=== PATIENT | male | born 1935 | race Caucasian/White ===

== ENCOUNTER 2017-10-08 14:52 | Inpatient (IN) | payer MEDICARE, OTHER ==
[2017-10-08] MEDS ORDERED: METOCLOPRAMIDE 10 MG INJ IV (16:00)
[2017-10-08] MEDS ORDERED: BISACODYL 10 MG SUPP PR (16:00)
[2017-10-08] MEDS ORDERED: GLUCOSE GEL 15 GRAM TUBE BUCCAL (16:30)
[2017-10-08] MEDS ORDERED: GLUCOSE GEL 15 GRAM TUBE PO ×2 (16:30)
[2017-10-08] MEDS ORDERED: GLUCAGON 1 MG INJ IM (16:30)
[2017-10-08] MEDS ORDERED: DEXTROSE 50% 50 ML SYRINGE IV ×2 (16:30)
[2017-10-08] MEDS: metFORMIN 500 MG TAB PO (16:53)
[2017-10-08] MEDS: MIDODRINE 2.5 MG TAB GTB (17:00)
[2017-10-08] MEDS: INSULIN ASPART [NOVOLOG] 3 ML PEN SC ×2 (17:06→20:56)
[2017-10-08] MEDS: FUROSEMIDE 20 MG INJ IV (17:09)
[2017-10-08] MEDS: METHYLPREDNISOLONE 40 MG INJ IV (20:52)
[2017-10-08] MEDS: ATORVASTATIN 20 MG TAB PO (20:57)
[2017-10-08] MEDS: METOPROLOL 25 MG TAB PO (20:57)
[2017-10-08] MEDS: APIXABAN 5 MG TABLET PO (20:57)
[2017-10-08] MEDS: MIRTAZAPINE 15 MG TAB PO (20:58)
[2017-10-08] MEDS ORDERED: FAMOTIDINE 20 MG TAB PO (21:00)
[2017-10-08] MEDS: ALBUTEROL 0.083% (NEB) 2.5 MG/3 ML AMP HHN (23:27)
[2017-10-09] MEDS: FUROSEMIDE 20 MG INJ IV ×2 (00:03→06:15)
[2017-10-09] MEDS: ACCU-CHEK XX (02:28)
[2017-10-09] MEDS: ALBUTEROL 0.083% (NEB) 2.5 MG/3 ML AMP HHN ×4 (02:48→19:14)
[2017-10-09 05:23] LABS: ABNORMAL IP MESSAGE 1; HEMATOCRIT 31.1 % (42.0-52.0); HEMOGLOBIN 10.1 g/dl (14.0-18.0); MEAN CORPUSCULAR HEMOGLOBIN 28.6 pg (29.0-33.0); MEAN CORPUSCULAR HGB CONC 32.5 g/dl (32.0-37.0); MEAN CORPUSCULAR VOLUME 88.1 fl (82.0-101.0); MEAN PLATELET VOLUME 10.1 fl (7.4-10.4); PLATELET COUNT 251 10^3/UL (140-415); POSITIVE DIFF @See below; RED BLOOD COUNT 3.53 10^6/ul (4.70-6.10); RED CELL DISTRIBUTION WIDTH 18.8 % (11.5-14.5)
[2017-10-09 05:23] LABS: WHITE BLOOD COUNT 13.6 10^3/ul (4.8-10.8)
[2017-10-09 05:37] LABS: ADD MAN DIFF? YES
[2017-10-09 05:43] LABS: ANION GAP 13 (8-16); BLOOD UREA NITROGEN 43 mg/dl (7-20); CALCIUM 9.4 mg/dl (8.4-10.2); CARBON DIOXIDE 31 mmol/L (21-31); CHLORIDE 101 mmol/L (97-110); CREATININE 0.68 mg/dl (0.61-1.24); GLUCOSE 108 mg/dl (70-220); POTASSIUM 4.2 mmol/L (3.5-5.1); SODIUM 141 mmol/L (135-144)
[2017-10-09 05:57] LABS: MAGNESIUM 1.9 mg/dl (1.7-2.5)
[2017-10-09] MEDS: LEVOTHYROXINE 100 MCG TAB PO (06:00)
[2017-10-09] MEDS: PANTOPRAZOLE 40 MG INJ IV ×2 (06:15→17:48)
[2017-10-09] MEDS: metFORMIN 500 MG TAB PO ×2 (07:35→17:49)
[2017-10-09 08:47] LABS: AADO2 Arterial 165.6 mmHg (7.0-24.0); Allen Test ACCEPTAB; Arterial Base Excess 7.6 mmol/L (-3.0-3); Arterial COHb 0.9 % (0.0-3.0); Arterial Fraction of Oxyhgb 93.1 % (93.0-99.0); Arterial HCO3 31.8 mmol/L (22.0-26.0); Arterial MetHb 0.1 % (0.0-1.5); Arterial Total Hemglobin 12.1 g/dl (12.0-18.0); Arterial pCO2 43.3 mmhg (35-45); MODE MASK - VENTI; Site Right Radial
[2017-10-09] MEDS: INSULIN ASPART [NOVOLOG] 3 ML PEN SC ×4 (08:59→21:00)
[2017-10-09] MEDS ORDERED: CLOPIDOGREL 75 MG TAB PO (09:00)
[2017-10-09] MEDS: APIXABAN 5 MG TABLET PO ×2 (09:15→21:08)
[2017-10-09] MEDS: CLOPIDOGREL 75 MG TAB PO (09:15)
[2017-10-09] MEDS: BALSAM PERU/CASTOR OIL 60 GM TUBE TOP (09:15)
[2017-10-09] MEDS: METHYLPREDNISOLONE 40 MG INJ IV ×2 (09:15→21:08)
[2017-10-09] MEDS: CHOLECALCIFEROL 2,000 UNIT CAP PO (09:16)
[2017-10-09] MEDS: DUTASTERIDE 0.5 MG CAP PO (09:16)
[2017-10-09] MEDS: METOPROLOL 25 MG TAB PO ×2 (09:16→21:00)
[2017-10-09] MEDS: MIDODRINE 2.5 MG TAB GTB ×3 (09:16→17:49)
[2017-10-09 10:15] LABS: ANISOCYTOSIS 2+ (0-0); BAND NEUTROPHILS #M 0.5 10^3/ul (0.0-0.6); BAND NEUTROPHILS % (M) 4 % (0-4); BURR CELLS 1+ (0-0); LYMPHOCYTES #M 0.1 10^3/ul (0.8-2.9); LYMPHOCYTES % (M) 1 % (15-51); METAMYELOCYTES #M 0.1 10^3/ul (0.0-0.0); METAMYELOCYTES %M 1 % (0-0); MONOCYTE #M 0.2 10^3/ul (0.3-0.9); MONOCYTES % (M) 2 % (0-11); MYELOCYTES #M 0.5 10^3/ul (0.0-0.0); MYELOCYTES % (M) 4 % (0-0); PLATELET ESTIMATE NORMAL; POIKILOCYTOSIS 1+ (0-0); POLYCHROMASIA 1+ (0-0); PROMYELOCYTES #M 0.1 10^3/ul (0-0); PROMYELOCYTES % (M) 1 % (0-0); SEG NEUT #M 11.9 10^3/ul (1.6-7.5); SEGMENTED NEUTROPHILS (M) % 87 % (39-77)
[2017-10-09] MEDS: LEVOFLOXACIN 500MG/D5W (PMX) 100 ML IVPB (11:33)
[2017-10-09] MEDS: DIGOXIN 0.125 MG TAB PO (14:42)
[2017-10-09] MEDS: FUROSEMIDE 40 MG INJ IV (17:49)
[2017-10-09] MEDS: ATORVASTATIN 20 MG TAB PO (21:08)
[2017-10-09] MEDS: MIRTAZAPINE 15 MG TAB PO (21:12)
[2017-10-09 23:48] LABS: Allen Test ACCEPTAB; Arterial Base Excess 5.1 mmol/L (-3.0-3); Arterial Blood Gas Oxygen Sat 94.6 mmHG (95.0-100.0); Arterial COHb 0.1 % (0.0-3.0); Arterial Fraction of Oxyhgb 94.4 % (93.0-99.0); Arterial HCO3 28.3 mmol/L (22.0-26.0); Arterial MetHb 0.1 % (0.0-1.5); Arterial pCO2 36.4 mmhg (35-45); MODE HFNC; Site Left Radial
[2017-10-10] MEDS: ALBUTEROL 0.083% (NEB) 2.5 MG/3 ML AMP HHN ×4 (01:29→19:16)
[2017-10-10] MEDS: ACCU-CHEK XX (02:00)
[2017-10-10 05:08] LABS: ADD MAN DIFF? NO
[2017-10-10 05:09] LABS: WHITE BLOOD COUNT 13.8 10^3/ul (4.8-10.8)
[2017-10-10 05:09] LABS: ABNORMAL IP MESSAGE 1; BASOPHIL # 0.1 10^3/ul (0.0-0.1); BASOPHILS % 0.4 % (0.0-2.0); HEMATOCRIT 30.1 % (42.0-52.0); HEMOGLOBIN 9.7 g/dl (14.0-18.0); LYMPHOCYTES # 0.3 10^3/ul (0.8-2.9); LYMPHOCYTES % 1.9 % (15.0-51.0); MEAN CORPUSCULAR HEMOGLOBIN 28.3 pg (29.0-33.0); MEAN CORPUSCULAR HGB CONC 32.2 g/dl (32.0-37.0); MEAN CORPUSCULAR VOLUME 87.8 fl (82.0-101.0); MEAN PLATELET VOLUME 9.6 fl (7.4-10.4); MONOCYTE # 0.4 10^3/ul (0.3-0.9); MONOCYTES % 2.9 % (0.0-11.0); NEUTROPHIL # 12.2 10^3/ul (1.6-7.5); NEUTROPHILS % 88.3 % (39.0-77.0); PLATELET COUNT 247 10^3/UL (140-415); POSITIVE DIFF @See below; RED BLOOD COUNT 3.43 10^6/ul (4.70-6.10); RED CELL DISTRIBUTION WIDTH 18.4 % (11.5-14.5)
[2017-10-10] MEDS: PANTOPRAZOLE 40 MG INJ IV ×2 (05:16→18:27)
[2017-10-10] MEDS: FUROSEMIDE 40 MG INJ IV ×2 (05:16→18:57)
[2017-10-10] MEDS: LEVOTHYROXINE 100 MCG TAB PO (05:16)
[2017-10-10 05:30] LABS: ALANINE AMINOTRANSFERASE 33 IU/L (13-69); ALBUMIN 2.7 g/dl (3.3-4.9); ALBUMIN/GLOBULIN RATIO 0.81; ALKALINE PHOSPHATASE 85 IU/L (42-121); ANION GAP 10 (8-16); ASPARTATE AMINO TRANSFERASE 21 IU/L (15-46); BILIRUBIN,INDIRECT 0.2 mg/dl (0-1.1); BILIRUBIN,TOTAL 0.2 mg/dl (0.2-1.3); BLOOD UREA NITROGEN 44 mg/dl (7-20); CALCIUM 9.2 mg/dl (8.4-10.2); CARBON DIOXIDE 32 mmol/L (21-31); CHLORIDE 98 mmol/L (97-110); CREATININE 0.69 mg/dl (0.61-1.24); GLUCOSE 146 mg/dl (70-220); SODIUM 136 mmol/L (135-144)
[2017-10-10] MEDS: INSULIN ASPART [NOVOLOG] 3 ML PEN SC ×4 (07:35→20:22)
[2017-10-10] MEDS: CLOPIDOGREL 75 MG TAB PO (08:42)
[2017-10-10] MEDS: DUTASTERIDE 0.5 MG CAP PO (08:42)
[2017-10-10] MEDS: METHYLPREDNISOLONE 40 MG INJ IV ×2 (08:42→20:21)
[2017-10-10] MEDS: CHOLECALCIFEROL 2,000 UNIT CAP PO (08:43)
[2017-10-10] MEDS: metFORMIN 500 MG TAB PO ×2 (08:43→18:27)
[2017-10-10] MEDS: APIXABAN 5 MG TABLET PO ×2 (08:43→20:21)
[2017-10-10] MEDS: BALSAM PERU/CASTOR OIL 60 GM TUBE TOP (08:43)
[2017-10-10] MEDS: MIDODRINE 2.5 MG TAB GTB ×3 (10:48→18:27)
[2017-10-10] MEDS: LEVOFLOXACIN 500MG/D5W (PMX) 100 ML IVPB (10:49)
[2017-10-10] MEDS: METOPROLOL 25 MG TAB PO ×2 (10:49→20:22)
[2017-10-10] MEDS: DIGOXIN 0.125 MG TAB PO (13:04)
[2017-10-10] MEDS: ATORVASTATIN 20 MG TAB PO (20:21)
[2017-10-10] MEDS: MIRTAZAPINE 15 MG TAB PO (20:21)
[2017-10-11] MEDS: ALBUTEROL 0.083% (NEB) 2.5 MG/3 ML AMP HHN ×4 (01:35→19:54)
[2017-10-11] MEDS: ACCU-CHEK XX (03:45)
[2017-10-11 05:17] LABS: ADD MAN DIFF? NO
[2017-10-11 05:23] LABS: ABNORMAL IP MESSAGE 1; BASOPHIL # 0.1 10^3/ul (0.0-0.1); BASOPHILS % 0.5 % (0.0-2.0); HEMATOCRIT 30.2 % (42.0-52.0); HEMOGLOBIN 9.8 g/dl (14.0-18.0); LYMPHOCYTES # 0.3 10^3/ul (0.8-2.9); LYMPHOCYTES % 2.7 % (15.0-51.0); MEAN CORPUSCULAR HEMOGLOBIN 28.6 pg (29.0-33.0); MEAN CORPUSCULAR HGB CONC 32.5 g/dl (32.0-37.0); MONOCYTE # 0.3 10^3/ul (0.3-0.9); MONOCYTES % 2.3 % (0.0-11.0); NEUTROPHILS % 88.6 % (39.0-77.0); PLATELET COUNT 243 10^3/UL (140-415); POSITIVE DIFF @See below; RED BLOOD COUNT 3.43 10^6/ul (4.70-6.10); RED CELL DISTRIBUTION WIDTH 18.3 % (11.5-14.5)
[2017-10-11 05:23] LABS: WHITE BLOOD COUNT 12.4 10^3/ul (4.8-10.8)
[2017-10-11 05:48] LABS: ALANINE AMINOTRANSFERASE 25 IU/L (13-69); ALBUMIN/GLOBULIN RATIO 0.93; ALKALINE PHOSPHATASE 87 IU/L (42-121); ANION GAP 15 (8-16); ASPARTATE AMINO TRANSFERASE 22 IU/L (15-46); BLOOD UREA NITROGEN 48 mg/dl (7-20); CALCIUM 9.6 mg/dl (8.4-10.2); CARBON DIOXIDE 35 mmol/L (21-31); CHLORIDE 96 mmol/L (97-110); CREATININE 0.79 mg/dl (0.61-1.24); GLUCOSE 105 mg/dl (70-220); POTASSIUM 3.9 mmol/L (3.5-5.1); SODIUM 142 mmol/L (135-144); TOTAL PROTEIN 6.2 g/dl (6.1-8.1)
[2017-10-11] MEDS: FUROSEMIDE 40 MG INJ IV ×2 (07:06→17:36)
[2017-10-11] MEDS: PANTOPRAZOLE 40 MG INJ IV ×2 (07:06→17:36)
[2017-10-11] MEDS: LEVOTHYROXINE 100 MCG TAB PO (07:07)
[2017-10-11] MEDS: INSULIN ASPART [NOVOLOG] 3 ML PEN SC ×4 (07:35→21:00)
[2017-10-11 08:24] LABS: AADO2 Arterial 267.9 mmHg (7.0-24.0); Allen Test ACCEPTAB; Arterial Base Excess 6.8 mmol/L (-3.0-3); Arterial Blood Gas Oxygen Sat 95.2 mmHG (95.0-100.0); Arterial COHb 0.3 % (0.0-3.0); Arterial Fraction of Oxyhgb 94.6 % (93.0-99.0); Arterial HCO3 30.6 mmol/L (22.0-26.0); Arterial MetHb 0.3 % (0.0-1.5); Arterial Total Hemglobin 10.8 g/dl (12.0-18.0); Arterial pCO2 40.2 mmhg (35-45); MODE HFNC; Site Right Radial
[2017-10-11] MEDS: metFORMIN 500 MG TAB PO ×2 (08:48→17:35)
[2017-10-11] MEDS: APIXABAN 5 MG TABLET PO ×2 (08:48→21:49)
[2017-10-11] MEDS: CLOPIDOGREL 75 MG TAB PO (08:48)
[2017-10-11] MEDS: DUTASTERIDE 0.5 MG CAP PO (08:48)
[2017-10-11] MEDS: CHOLECALCIFEROL 2,000 UNIT CAP PO (08:48)
[2017-10-11] MEDS: METHYLPREDNISOLONE 40 MG INJ IV ×2 (08:49→21:48)
[2017-10-11] MEDS: MIDODRINE 2.5 MG TAB GTB ×3 (08:49→17:36)
[2017-10-11] MEDS: BALSAM PERU/CASTOR OIL 60 GM TUBE TOP (08:49)
[2017-10-11] MEDS: METOPROLOL 25 MG TAB PO ×2 (09:00→21:53)
[2017-10-11] MEDS: DIGOXIN 0.125 MG TAB PO (11:39)
[2017-10-11] MEDS: LEVOFLOXACIN 500MG/D5W (PMX) 100 ML IVPB (12:17)
[2017-10-11] MEDS: DIGOXIN 500 MCG INJ IV (12:17)
[2017-10-11] MEDS: ATORVASTATIN 20 MG TAB PO (21:49)
[2017-10-11] MEDS: MIRTAZAPINE 15 MG TAB PO (21:49)
[2017-10-12] MEDS: ACCU-CHEK XX (02:00)
[2017-10-12] MEDS: ALBUTEROL 0.083% (NEB) 2.5 MG/3 ML AMP HHN ×4 (02:06→19:19)
[2017-10-12] MEDS: PANTOPRAZOLE 40 MG INJ IV ×2 (06:24→17:46)
[2017-10-12] MEDS: FUROSEMIDE 40 MG INJ IV (06:25)
[2017-10-12] MEDS: LEVOTHYROXINE 100 MCG TAB PO (06:25)
[2017-10-12 07:55] LABS: WHITE BLOOD COUNT 15.1 10^3/ul (4.8-10.8)
[2017-10-12 07:55] LABS: ABNORMAL IP MESSAGE 1; HEMATOCRIT 31.2 % (42.0-52.0); HEMOGLOBIN 10.4 g/dl (14.0-18.0); MEAN CORPUSCULAR HEMOGLOBIN 29.5 pg (29.0-33.0); MEAN CORPUSCULAR HGB CONC 33.3 g/dl (32.0-37.0); MEAN CORPUSCULAR VOLUME 88.6 fl (82.0-101.0); PLATELET COUNT 275 10^3/UL (140-415); POSITIVE DIFF @See below; RED BLOOD COUNT 3.52 10^6/ul (4.70-6.10); RED CELL DISTRIBUTION WIDTH 18.1 % (11.5-14.5)
[2017-10-12] MEDS: INSULIN ASPART [NOVOLOG] 3 ML PEN SC ×4 (07:55→21:00)
[2017-10-12 07:57] LABS: ADD MAN DIFF? YES
[2017-10-12 08:15] LABS: MAGNESIUM 1.9 mg/dl (1.7-2.5)
[2017-10-12 08:28] LABS: ANION GAP 14 (8-16); BLOOD UREA NITROGEN 59 mg/dl (7-20); CALCIUM 9.1 mg/dl (8.4-10.2); CARBON DIOXIDE 31 mmol/L (21-31); CHLORIDE 98 mmol/L (97-110); CREATININE 0.74 mg/dl (0.61-1.24); GLUCOSE 89 mg/dl (70-220); POTASSIUM 3.7 mmol/L (3.5-5.1); SODIUM 139 mmol/L (135-144)
[2017-10-12] MEDS: DUTASTERIDE 0.5 MG CAP PO (08:33)
[2017-10-12] MEDS: CLOPIDOGREL 75 MG TAB PO (08:35)
[2017-10-12] MEDS: MIDODRINE 2.5 MG TAB GTB ×3 (08:35→17:51)
[2017-10-12] MEDS: CHOLECALCIFEROL 2,000 UNIT CAP PO (08:35)
[2017-10-12] MEDS: APIXABAN 5 MG TABLET PO ×2 (08:36→21:08)
[2017-10-12] MEDS: metFORMIN 500 MG TAB PO ×2 (08:37→17:46)
[2017-10-12] MEDS: METHYLPREDNISOLONE 40 MG INJ IV ×2 (08:37→21:07)
[2017-10-12] MEDS: METOPROLOL 25 MG TAB PO ×2 (08:37→21:00)
[2017-10-12] MEDS: BALSAM PERU/CASTOR OIL 60 GM TUBE TOP (09:00)
[2017-10-12 10:50] LABS: ANISOCYTOSIS 2+ (0-0); BAND NEUTROPHILS #M 1.2 10^3/ul (0.0-0.6); BAND NEUTROPHILS % (M) 8 % (0-4); GIANT THROMBO% (M) 1 % (0-0); LYMPHOCYTES #M 0.1 10^3/ul (0.8-2.9); LYMPHOCYTES % (M) 1 % (15-51); METAMYELOCYTES #M 0.1 10^3/ul (0.0-0.0); METAMYELOCYTES %M 1 % (0-0); MICROCYTOSIS 2+ (0-0); MONOCYTE #M 0.6 10^3/ul (0.3-0.9); MONOCYTES % (M) 4 % (0-11); MYELOCYTES #M 0.3 10^3/ul (0.0-0.0); MYELOCYTES % (M) 2 % (0-0); PLATELET ESTIMATE NORMAL; POLYCHROMASIA 3+ (0-0); SEG NEUT #M 12.9 10^3/ul (1.6-7.5); SEGMENTED NEUTROPHILS (M) % 84 % (39-77)
[2017-10-12] MEDS: LEVOFLOXACIN 500MG/D5W (PMX) 100 ML IVPB (12:00)
[2017-10-12] MEDS: DIGOXIN 0.125 MG TAB PO (12:37)
[2017-10-12] MEDS: MIRTAZAPINE 15 MG TAB PO (21:07)
[2017-10-12] MEDS: ATORVASTATIN 20 MG TAB PO (21:08)
[2017-10-13] MEDS: ALBUTEROL 0.083% (NEB) 2.5 MG/3 ML AMP HHN ×4 (01:29→19:56)
[2017-10-13] MEDS: ACCU-CHEK XX (02:00)
[2017-10-13] MEDS: LEVOTHYROXINE 100 MCG TAB PO (05:39)
[2017-10-13] MEDS: PANTOPRAZOLE 40 MG INJ IV ×2 (05:39→17:17)
[2017-10-13] MEDS: INSULIN ASPART [NOVOLOG] 3 ML PEN SC ×4 (07:55→21:00)
[2017-10-13] MEDS: CLOPIDOGREL 75 MG TAB PO (08:14)
[2017-10-13] MEDS: CHOLECALCIFEROL 2,000 UNIT CAP PO (08:14)
[2017-10-13] MEDS: METHYLPREDNISOLONE 40 MG INJ IV ×2 (08:14→21:13)
[2017-10-13] MEDS: MIDODRINE 2.5 MG TAB GTB ×3 (08:15→17:18)
[2017-10-13] MEDS: DUTASTERIDE 0.5 MG CAP PO (08:15)
[2017-10-13] MEDS: metFORMIN 500 MG TAB PO ×2 (08:15→17:18)
[2017-10-13] MEDS: APIXABAN 5 MG TABLET PO ×2 (08:15→21:13)
[2017-10-13] MEDS: METOPROLOL 25 MG TAB PO ×2 (08:16→21:00)
[2017-10-13] MEDS: BALSAM PERU/CASTOR OIL 60 GM TUBE TOP (09:00)
[2017-10-13] MEDS: FUROSEMIDE 40 MG TAB PO (09:00)
[2017-10-13 09:28] LABS: ADD MAN DIFF? NO
[2017-10-13 09:47] LABS: ABNORMAL IP MESSAGE 1; BASOPHIL # 0.1 10^3/ul (0.0-0.1); BASOPHILS % 0.6 % (0.0-2.0); HEMATOCRIT 28.6 % (42.0-52.0); LYMPHOCYTES # 0.5 10^3/ul (0.8-2.9); MEAN CORPUSCULAR HEMOGLOBIN 31.3 pg (29.0-33.0); MEAN CORPUSCULAR VOLUME 89.7 fl (82.0-101.0); MONOCYTE # 0.4 10^3/ul (0.3-0.9); MONOCYTES % 2.5 % (0.0-11.0); NEUTROPHILS % 84.8 % (39.0-77.0); PLATELET COUNT 265 10^3/UL (140-415); POSITIVE DIFF @See below; RED BLOOD COUNT 3.19 10^6/ul (4.70-6.10); RED CELL DISTRIBUTION WIDTH 18.2 % (11.5-14.5)
[2017-10-13 09:47] LABS: WHITE BLOOD COUNT 15.3 10^3/ul (4.8-10.8)
[2017-10-13 10:13] LABS: ANION GAP 14 (8-16); BLOOD UREA NITROGEN 70 mg/dl (7-20); CALCIUM 9.3 mg/dl (8.4-10.2); CARBON DIOXIDE 31 mmol/L (21-31); CHLORIDE 98 mmol/L (97-110); CREATININE 0.96 mg/dl (0.61-1.24); GLUCOSE 101 mg/dl (70-220); POTASSIUM 3.8 mmol/L (3.5-5.1); SODIUM 139 mmol/L (135-144)
[2017-10-13] MEDS: LEVOFLOXACIN 500MG/D5W (PMX) 100 ML IVPB (10:55)
[2017-10-13 11:15] LABS: ANISOCYTOSIS 2+ (0-0); BAND NEUTROPHILS #M 0.1 10^3/ul (0.0-0.6); BAND NEUTROPHILS % (M) 1 % (0-4); GIANT THROMBO% (M) 1 % (0-0); LYMPHOCYTES #M 0.9 10^3/ul (0.8-2.9); LYMPHOCYTES % (M) 6 % (15-51); METAMYELOCYTES #M 0.9 10^3/ul (0.0-0.0); METAMYELOCYTES %M 6 % (0-0); MICROCYTOSIS 2+ (0-0); MONOCYTE #M 0.6 10^3/ul (0.3-0.9); MONOCYTES % (M) 4 % (0-11); MYELOCYTES #M 0.3 10^3/ul (0.0-0.0); MYELOCYTES % (M) 2 % (0-0); OVALOCYTES 1+ (0-0); PLATELET ESTIMATE NORMAL; POIKILOCYTOSIS 1+ (0-0); POLYCHROMASIA 2+ (0-0); SEG NEUT #M 12.4 10^3/ul (1.6-7.5); SEGMENTED NEUTROPHILS (M) % 81 % (39-77)
[2017-10-13] MEDS: DIGOXIN 0.125 MG TAB PO (13:11)
[2017-10-13] MEDS: ALBUTEROL/IPRATROPIUM (NEB) 3 ML AMP HHN (16:04)
[2017-10-13] MEDS: FUROSEMIDE 20 MG TAB PO (17:19)
[2017-10-13] MEDS: ATORVASTATIN 20 MG TAB PO (21:13)
[2017-10-13] MEDS: SERTRALINE 100 MG TAB PO (22:50)
[2017-10-13] MEDS: RIVASTIGMINE 4.6MG/24H PATCH TRANSDERM (22:50)
[2017-10-14] MEDS: ALBUTEROL 0.083% (NEB) 2.5 MG/3 ML AMP HHN ×4 (01:03→19:59)
[2017-10-14] MEDS: ACCU-CHEK XX (02:00)
[2017-10-14] MEDS: LEVOTHYROXINE 100 MCG TAB PO (06:04)
[2017-10-14] MEDS: PANTOPRAZOLE 40 MG INJ IV ×2 (06:04→17:28)
[2017-10-14] MEDS: FUROSEMIDE 20 MG TAB PO (06:05)
[2017-10-14] MEDS: INSULIN ASPART [NOVOLOG] 3 ML PEN SC ×4 (07:55→21:00)
[2017-10-14 08:06] LABS: ADD MAN DIFF? NO
[2017-10-14 08:12] LABS: ABNORMAL IP MESSAGE 1; BASOPHILS % 0.2 % (0.0-2.0); HEMATOCRIT 29.4 % (42.0-52.0); HEMOGLOBIN 9.6 g/dl (14.0-18.0); LYMPHOCYTES # 0.4 10^3/ul (0.8-2.9); LYMPHOCYTES % 2.4 % (15.0-51.0); MEAN CORPUSCULAR HEMOGLOBIN 28.7 pg (29.0-33.0); MEAN CORPUSCULAR HGB CONC 32.7 g/dl (32.0-37.0); MEAN CORPUSCULAR VOLUME 87.8 fl (82.0-101.0); MEAN PLATELET VOLUME 9.9 fl (7.4-10.4); MONOCYTE # 0.4 10^3/ul (0.3-0.9); MONOCYTES % 2.2 % (0.0-11.0); NEUTROPHIL # 13.8 10^3/ul (1.6-7.5); NEUTROPHILS % 86.5 % (39.0-77.0); PLATELET COUNT 240 10^3/UL (140-415); POSITIVE DIFF @See below; RED BLOOD COUNT 3.35 10^6/ul (4.70-6.10); RED CELL DISTRIBUTION WIDTH 18.3 % (11.5-14.5)
[2017-10-14 08:12] LABS: WHITE BLOOD COUNT 15.9 10^3/ul (4.8-10.8)
[2017-10-14] MEDS: ALBUTEROL/IPRATROPIUM (NEB) 3 ML AMP HHN (08:30)
[2017-10-14 08:48] LABS: ANION GAP 10 (8-16); BLOOD UREA NITROGEN 61 mg/dl (7-20); CALCIUM 9.2 mg/dl (8.4-10.2); CARBON DIOXIDE 33 mmol/L (21-31); CHLORIDE 98 mmol/L (97-110); CREATININE 0.84 mg/dl (0.61-1.24); GLUCOSE 88 mg/dl (70-220); POTASSIUM 3.2 mmol/L (3.5-5.1); SODIUM 138 mmol/L (135-144)
[2017-10-14] MEDS: METOPROLOL 25 MG TAB PO ×2 (09:00→21:00)
[2017-10-14] MEDS: CHOLECALCIFEROL 2,000 UNIT CAP PO (09:28)
[2017-10-14] MEDS: metFORMIN 500 MG TAB PO ×2 (09:28→17:32)
[2017-10-14] MEDS: BALSAM PERU/CASTOR OIL 60 GM TUBE TOP (09:29)
[2017-10-14] MEDS: RIVASTIGMINE 4.6MG/24H PATCH TRANSDERM (09:29)
[2017-10-14] MEDS: CLOPIDOGREL 75 MG TAB PO (09:29)
[2017-10-14] MEDS: DUTASTERIDE 0.5 MG CAP PO (09:29)
[2017-10-14] MEDS: APIXABAN 5 MG TABLET PO ×2 (09:29→20:50)
[2017-10-14] MEDS: METHYLPREDNISOLONE 40 MG INJ IV ×2 (09:30→20:49)
[2017-10-14] MEDS: MIDODRINE 2.5 MG TAB GTB ×3 (10:30→17:28)
[2017-10-14] MEDS: LEVOFLOXACIN 500MG/D5W (PMX) 100 ML IVPB (12:42)
[2017-10-14] MEDS: DIGOXIN 0.125 MG TAB PO (12:43)
[2017-10-14] MEDS: POTASSIUM CHLORIDE 20 MEQ POWDER FOR ORAL SOLN PO (15:00)
[2017-10-14] MEDS: SERTRALINE 100 MG TAB PO (20:50)
[2017-10-14] MEDS: ATORVASTATIN 20 MG TAB PO (20:50)
[2017-10-15] MEDS: ALBUTEROL 0.083% (NEB) 2.5 MG/3 ML AMP HHN ×4 (01:30→19:47)
[2017-10-15] MEDS: ACCU-CHEK XX (02:00)
[2017-10-15] MEDS: PANTOPRAZOLE 40 MG INJ IV ×2 (06:08→17:00)
[2017-10-15] MEDS: LEVOTHYROXINE 100 MCG TAB PO (06:08)
[2017-10-15 07:55] LABS: ADD MAN DIFF? NO
[2017-10-15] MEDS: INSULIN ASPART [NOVOLOG] 3 ML PEN SC ×4 (07:55→21:00)
[2017-10-15 08:10] LABS: ABNORMAL IP MESSAGE 1; BASOPHIL # 0.1 10^3/ul (0.0-0.1); BASOPHILS % 0.5 % (0.0-2.0); HEMATOCRIT 29.6 % (42.0-52.0); HEMOGLOBIN 9.9 g/dl (14.0-18.0); LYMPHOCYTES # 0.3 10^3/ul (0.8-2.9); LYMPHOCYTES % 2.3 % (15.0-51.0); MEAN CORPUSCULAR HEMOGLOBIN 29.8 pg (29.0-33.0); MEAN CORPUSCULAR HGB CONC 33.4 g/dl (32.0-37.0); MEAN CORPUSCULAR VOLUME 89.2 fl (82.0-101.0); MEAN PLATELET VOLUME 9.7 fl (7.4-10.4); MONOCYTE # 0.2 10^3/ul (0.3-0.9); MONOCYTES % 1.5 % (0.0-11.0); NEUTROPHIL # 12.3 10^3/ul (1.6-7.5); NEUTROPHILS % 85.1 % (39.0-77.0); PLATELET COUNT 225 10^3/UL (140-415); POSITIVE DIFF @See below; RED BLOOD COUNT 3.32 10^6/ul (4.70-6.10); RED CELL DISTRIBUTION WIDTH 18.1 % (11.5-14.5)
[2017-10-15 08:10] LABS: WHITE BLOOD COUNT 14.5 10^3/ul (4.8-10.8)
[2017-10-15 08:15] LABS: MAGNESIUM 1.8 mg/dl (1.7-2.5)
[2017-10-15 08:20] LABS: ANION GAP 11 (8-16); BLOOD UREA NITROGEN 49 mg/dl (7-20); CALCIUM 9.2 mg/dl (8.4-10.2); CARBON DIOXIDE 33 mmol/L (21-31); CHLORIDE 100 mmol/L (97-110); CREATININE 0.58 mg/dl (0.61-1.24); GLUCOSE 75 mg/dl (70-220); POTASSIUM 3.9 mmol/L (3.5-5.1); SODIUM 140 mmol/L (135-144)
[2017-10-15] MEDS: METHYLPREDNISOLONE 40 MG INJ IV ×2 (08:29→21:04)
[2017-10-15] MEDS: CHOLECALCIFEROL 2,000 UNIT CAP PO (08:29)
[2017-10-15] MEDS: DUTASTERIDE 0.5 MG CAP PO (08:29)
[2017-10-15] MEDS: CLOPIDOGREL 75 MG TAB PO (08:29)
[2017-10-15] MEDS: APIXABAN 5 MG TABLET PO ×2 (08:29→21:04)
[2017-10-15] MEDS: metFORMIN 500 MG TAB PO ×2 (08:29→16:56)
[2017-10-15] MEDS: FUROSEMIDE 20 MG TAB PO (08:30)
[2017-10-15] MEDS: RIVASTIGMINE 4.6MG/24H PATCH TRANSDERM (08:30)
[2017-10-15] MEDS: METOPROLOL 25 MG TAB PO ×2 (08:37→21:00)
[2017-10-15] MEDS: MIDODRINE 2.5 MG TAB GTB ×3 (08:37→16:56)
[2017-10-15] MEDS: BALSAM PERU/CASTOR OIL 60 GM TUBE TOP ×2 (08:40→21:12)
[2017-10-15] MEDS: LEVOFLOXACIN 500MG/D5W (PMX) 100 ML IVPB (11:40)
[2017-10-15] MEDS: DIGOXIN 0.125 MG TAB PO (13:31)
[2017-10-15] MEDS: ATORVASTATIN 20 MG TAB PO (21:04)
[2017-10-15] MEDS: SERTRALINE 100 MG TAB PO (21:04)
[2017-10-16] MEDS: ALBUTEROL 0.083% (NEB) 2.5 MG/3 ML AMP HHN ×4 (01:16→19:58)
[2017-10-16] MEDS: ACCU-CHEK XX (02:00)
[2017-10-16] MEDS: PANTOPRAZOLE 40 MG INJ IV ×2 (05:37→17:00)
[2017-10-16] MEDS: LEVOTHYROXINE 100 MCG TAB PO (05:37)
[2017-10-16] MEDS: INSULIN ASPART [NOVOLOG] 3 ML PEN SC ×4 (07:55→21:00)
[2017-10-16] MEDS: DUTASTERIDE 0.5 MG CAP PO (08:01)
[2017-10-16] MEDS: metFORMIN 500 MG TAB PO ×2 (08:01→17:00)
[2017-10-16] MEDS: APIXABAN 5 MG TABLET PO ×2 (08:02→21:38)
[2017-10-16] MEDS: BALSAM PERU/CASTOR OIL 60 GM TUBE TOP ×2 (08:02→21:39)
[2017-10-16] MEDS: METHYLPREDNISOLONE 40 MG INJ IV ×2 (08:02→21:37)
[2017-10-16] MEDS: CHOLECALCIFEROL 2,000 UNIT CAP PO (08:02)
[2017-10-16] MEDS: CLOPIDOGREL 75 MG TAB PO (08:02)
[2017-10-16] MEDS: FUROSEMIDE 20 MG TAB PO (08:04)
[2017-10-16] MEDS: METOPROLOL 25 MG TAB PO ×2 (08:04→21:38)
[2017-10-16] MEDS: MIDODRINE 2.5 MG TAB GTB ×3 (08:04→16:59)
[2017-10-16 08:31] LABS: ADD MAN DIFF? NO
[2017-10-16 08:37] LABS: WHITE BLOOD COUNT 17.3 10^3/ul (4.8-10.8)
[2017-10-16 08:37] LABS: ABNORMAL IP MESSAGE 1; BASOPHIL # 0.1 10^3/ul (0.0-0.1); BASOPHILS % 0.3 % (0.0-2.0); HEMATOCRIT 28.6 % (42.0-52.0); HEMOGLOBIN 9.4 g/dl (14.0-18.0); LYMPHOCYTES # 0.3 10^3/ul (0.8-2.9); LYMPHOCYTES % 1.6 % (15.0-51.0); MEAN CORPUSCULAR HEMOGLOBIN 29.3 pg (29.0-33.0); MEAN CORPUSCULAR HGB CONC 32.9 g/dl (32.0-37.0); MEAN CORPUSCULAR VOLUME 89.1 fl (82.0-101.0); MEAN PLATELET VOLUME 9.8 fl (7.4-10.4); MONOCYTE # 0.2 10^3/ul (0.3-0.9); MONOCYTES % 1.3 % (0.0-11.0); NEUTROPHIL # 15.5 10^3/ul (1.6-7.5); NEUTROPHILS % 89.4 % (39.0-77.0); PLATELET COUNT 224 10^3/UL (140-415); POSITIVE DIFF @See below; RED BLOOD COUNT 3.21 10^6/ul (4.70-6.10); RED CELL DISTRIBUTION WIDTH 18.2 % (11.5-14.5)
[2017-10-16 08:55] LABS: ANION GAP 12 (8-16); BLOOD UREA NITROGEN 52 mg/dl (7-20); CALCIUM 9.4 mg/dl (8.4-10.2); CARBON DIOXIDE 32 mmol/L (21-31); CHLORIDE 99 mmol/L (97-110); GLUCOSE 76 mg/dl (70-220); POTASSIUM 3.9 mmol/L (3.5-5.1); SODIUM 139 mmol/L (135-144)
[2017-10-16] MEDS: RIVASTIGMINE 4.6MG/24H PATCH TRANSDERM (09:04)
[2017-10-16] MEDS: LEVOFLOXACIN 500MG/D5W (PMX) 100 ML IVPB (11:28)
[2017-10-16] MEDS: DIGOXIN 0.125 MG TAB PO (13:11)
[2017-10-16] MEDS: ATORVASTATIN 20 MG TAB PO (21:37)
[2017-10-16] MEDS: SERTRALINE 100 MG TAB PO (21:38)
[2017-10-17] MEDS: ALBUTEROL 0.083% (NEB) 2.5 MG/3 ML AMP HHN ×4 (01:35→21:00)
[2017-10-17] MEDS: ACCU-CHEK XX (02:00)
[2017-10-17] MEDS: PANTOPRAZOLE 40 MG INJ IV ×2 (06:46→17:35)
[2017-10-17] MEDS: LEVOTHYROXINE 100 MCG TAB PO (06:46)
[2017-10-17] MEDS: INSULIN ASPART [NOVOLOG] 3 ML PEN SC ×4 (07:55→20:57)
[2017-10-17] MEDS: metFORMIN 500 MG TAB PO ×2 (08:38→17:35)
[2017-10-17] MEDS: DUTASTERIDE 0.5 MG CAP PO (08:38)
[2017-10-17] MEDS: APIXABAN 5 MG TABLET PO ×2 (08:38→20:56)
[2017-10-17] MEDS: CLOPIDOGREL 75 MG TAB PO (08:38)
[2017-10-17] MEDS: FUROSEMIDE 20 MG TAB PO (08:39)
[2017-10-17] MEDS: CHOLECALCIFEROL 2,000 UNIT CAP PO (08:40)
[2017-10-17] MEDS: METOPROLOL 25 MG TAB PO ×2 (08:40→20:56)
[2017-10-17] MEDS: RIVASTIGMINE 4.6MG/24H PATCH TRANSDERM (08:41)
[2017-10-17] MEDS: METHYLPREDNISOLONE 40 MG INJ IV (08:42)
[2017-10-17] MEDS: BALSAM PERU/CASTOR OIL 60 GM TUBE TOP ×2 (08:43→20:57)
[2017-10-17] MEDS: MIDODRINE 2.5 MG TAB GTB ×3 (09:02→17:34)
[2017-10-17] MEDS: DIGOXIN 0.125 MG TAB PO (13:20)
[2017-10-17] MEDS: SOD CHLORIDE 0.9% 1,000 ML IV (15:01)
[2017-10-17] MEDS: NYSTATIN SUSP 5 ML CUP PO ×3 (16:28→20:55)
[2017-10-17] MEDS: MEGESTROL 40 MG TAB PO (16:28)
[2017-10-17] MEDS: MULTIVITAMINS THERAPEUTIC TAB PO (17:40)
[2017-10-17] MEDS: SERTRALINE 100 MG TAB PO (20:55)
[2017-10-17] MEDS: ATORVASTATIN 20 MG TAB PO (20:56)
[2017-10-18] MEDS: ALBUTEROL 0.083% (NEB) 2.5 MG/3 ML AMP HHN ×4 (01:05→20:48)
[2017-10-18] MEDS: ACCU-CHEK XX (02:00)
[2017-10-18] MEDS: PANTOPRAZOLE 40 MG INJ IV ×2 (05:19→18:52)
[2017-10-18] MEDS: LEVOTHYROXINE 100 MCG TAB PO (05:19)
[2017-10-18] MEDS: SOD CHLORIDE 0.9% 1,000 ML IV ×2 (05:20→23:24)
[2017-10-18] MEDS: INSULIN ASPART [NOVOLOG] 3 ML PEN SC ×4 (07:55→20:55)
[2017-10-18] MEDS: CLOPIDOGREL 75 MG TAB PO (08:59)
[2017-10-18] MEDS: MEGESTROL 40 MG TAB PO (08:59)
[2017-10-18] MEDS: DUTASTERIDE 0.5 MG CAP PO (08:59)
[2017-10-18] MEDS: metFORMIN 500 MG TAB PO ×2 (09:00→18:53)
[2017-10-18] MEDS: MULTIVITAMINS THERAPEUTIC TAB PO (09:00)
[2017-10-18] MEDS: NYSTATIN SUSP 5 ML CUP PO ×4 (09:01→20:54)
[2017-10-18] MEDS: predniSONE 10 MG TAB GTB (09:01)
[2017-10-18] MEDS: CHOLECALCIFEROL 2,000 UNIT CAP PO (09:01)
[2017-10-18] MEDS: RIVASTIGMINE 4.6MG/24H PATCH TRANSDERM (09:02)
[2017-10-18] MEDS: METOPROLOL 25 MG TAB PO ×2 (09:03→20:47)
[2017-10-18] MEDS: FUROSEMIDE 20 MG TAB PO (09:04)
[2017-10-18] MEDS: BALSAM PERU/CASTOR OIL 60 GM TUBE TOP ×2 (09:07→20:56)
[2017-10-18] MEDS: APIXABAN 5 MG TABLET PO ×2 (09:09→20:54)
[2017-10-18] MEDS: MIDODRINE 2.5 MG TAB GTB ×3 (13:00→18:53)
[2017-10-18] MEDS: DIGOXIN 0.125 MG TAB PO (14:47)
[2017-10-18] MEDS: ATORVASTATIN 20 MG TAB PO (20:54)
[2017-10-18] MEDS: SERTRALINE 100 MG TAB PO (20:54)
[2017-10-18] MEDS: DOCOSANOL 2 GM CREAM TOP (20:56)
[2017-10-19] MEDS ORDERED: NORepinephrine 8MG/250 ML BAG
[2017-10-19] MEDS: ALBUTEROL 0.083% (NEB) 2.5 MG/3 ML AMP HHN ×2 (01:58→08:45)
[2017-10-19] MEDS: ACCU-CHEK XX (02:00)
[2017-10-19] MEDS: PANTOPRAZOLE 40 MG INJ IV (05:20)
[2017-10-19] MEDS: LEVOTHYROXINE 100 MCG TAB PO (05:20)
[2017-10-19] MEDS: ALBUTEROL/IPRATROPIUM (NEB) 3 ML AMP HHN (06:07)
[2017-10-19 06:12] LABS: ABNORMAL IP MESSAGE 1; HEMATOCRIT 26.2 % (42.0-52.0); HEMOGLOBIN 8.6 g/dl (14.0-18.0); MEAN CORPUSCULAR HEMOGLOBIN 28.5 pg (29.0-33.0); MEAN CORPUSCULAR HGB CONC 32.8 g/dl (32.0-37.0); MEAN CORPUSCULAR VOLUME 86.8 fl (82.0-101.0); MEAN PLATELET VOLUME 9.7 fl (7.4-10.4); PLATELET COUNT 197 10^3/UL (140-415); POSITIVE DIFF @See below; RED BLOOD COUNT 3.02 10^6/ul (4.70-6.10); RED CELL DISTRIBUTION WIDTH 18.2 % (11.5-14.5)
[2017-10-19 06:12] LABS: WHITE BLOOD COUNT 15.1 10^3/ul (4.8-10.8)
[2017-10-19 06:14] LABS: ADD MAN DIFF? YES
[2017-10-19 06:42] LABS: ANION GAP 12 (8-16); BLOOD UREA NITROGEN 41 mg/dl (7-20); CALCIUM 9.1 mg/dl (8.4-10.2); CARBON DIOXIDE 27 mmol/L (21-31); CHLORIDE 105 mmol/L (97-110); CREATININE 0.59 mg/dl (0.61-1.24); GLUCOSE 74 mg/dl (70-220); POTASSIUM 3.4 mmol/L (3.5-5.1); SODIUM 141 mmol/L (135-144)
[2017-10-19] MEDS: INSULIN ASPART [NOVOLOG] 3 ML PEN SC (07:55)
[2017-10-19 08:12] LABS: ANISOCYTOSIS 2+ (0-0); BAND NEUTROPHILS #M 0.4 10^3/ul (0.0-0.6); BAND NEUTROPHILS % (M) 3 % (0-4); BURR CELLS 1+ (0-0); LYMPHOCYTES #M 1.5 10^3/ul (0.8-2.9); LYMPHOCYTES % (M) 10 % (15-51); METAMYELOCYTES #M 0.1 10^3/ul (0.0-0.0); METAMYELOCYTES %M 1 % (0-0); MICROCYTOSIS 2+ (0-0); MONOCYTE #M 0.3 10^3/ul (0.3-0.9); MONOCYTES % (M) 2 % (0-11); MYELOCYTES #M 0.1 10^3/ul (0.0-0.0); MYELOCYTES % (M) 1 % (0-0); PLATELET ESTIMATE DECREASED; POIKILOCYTOSIS 2+ (0-0); PROMYELOCYTES #M 0.1 10^3/ul (0-0); PROMYELOCYTES % (M) 1 % (0-0); SEG NEUT #M 12.4 10^3/ul (1.6-7.5); SEGMENTED NEUTROPHILS (M) % 82 % (39-77)
[2017-10-19] MEDS: BALSAM PERU/CASTOR OIL 60 GM TUBE TOP (08:43)
[2017-10-19] MEDS: METOPROLOL 25 MG TAB PO (09:00)
[2017-10-19] MEDS: FUROSEMIDE 20 MG TAB PO (09:00)
[2017-10-19] MEDS: MEGESTROL (40 MG/ML) 10ML CUP PO (09:06)
[2017-10-19] MEDS: DUTASTERIDE 0.5 MG CAP PO (09:06)
[2017-10-19] MEDS: predniSONE 10 MG TAB GTB (09:06)
[2017-10-19] MEDS: MULTIVITAMINS THERAPEUTIC TAB PO (09:06)
[2017-10-19] MEDS: CLOPIDOGREL 75 MG TAB PO (09:06)
[2017-10-19] MEDS: NYSTATIN SUSP 5 ML CUP PO (09:06)
[2017-10-19] MEDS: metFORMIN 500 MG TAB PO (09:07)
[2017-10-19] MEDS: MIDODRINE 2.5 MG TAB GTB (09:07)
[2017-10-19] MEDS: CHOLECALCIFEROL 2,000 UNIT CAP PO (09:07)
[2017-10-19] MEDS: RIVASTIGMINE 4.6MG/24H PATCH TRANSDERM (09:07)
[2017-10-19] MEDS: APIXABAN 5 MG TABLET PO (09:08)
[2017-10-19] MEDS: DOCOSANOL 2 GM CREAM TOP (09:12)
== END 2017-10-19 12:44 | disposition expired | DRG 871 ==
LOC: ICU 10-19 11:25 → TEL 10-11 16:31 → ICU 10-19 11:44
PROVIDERS: Internal Medicine
PROC: 3E0F7GC Introduction of Other Therapeutic Substance into Respiratory Tract, Via Natural or Artificial Opening (ICD-10-PCS; principal; 2017-10-08)
DX: A41.9 Sepsis, unspecified organism (principal); J96.01 Acute respiratory failure with hypoxia; I50.43 Acute on chronic combined systolic (congestive) and diastolic (congestive) heart failure; J18.9 Pneumonia, unspecified organism; E44.0 Moderate protein-calorie malnutrition; E46 Unspecified protein-calorie malnutrition; Z68.43 Body mass index [BMI] 50.0-59.9, adult; R64 Cachexia; I42.9 Cardiomyopathy, unspecified; J84.10 Pulmonary fibrosis, unspecified; I11.0 Hypertensive heart disease with heart failure; I48.0 Paroxysmal atrial fibrillation; E11.9 Type 2 diabetes mellitus without complications; D64.9 Anemia, unspecified; I25.10 Atherosclerotic heart disease of native coronary artery without angina pectoris; Z95.5 Presence of coronary angioplasty implant and graft; Z95.810 Presence of automatic (implantable) cardiac defibrillator; E78.5 Hyperlipidemia, unspecified; E03.9 Hypothyroidism, unspecified; Z86.73 Personal history of transient ischemic attack (TIA), and cerebral infarction without residual deficits; I25.5 Ischemic cardiomyopathy; R65.20 Severe sepsis without septic shock; I95.9 Hypotension, unspecified; I46.9 Cardiac arrest, cause unspecified; J44.9 Chronic obstructive pulmonary disease, unspecified
CPT/HCPCS: 31500; 36600; 71045; 80048; 80053; 80162; 82803; 82962; 83735; 85025; 87081; 92526; 92610; 92950; 94002; 94640; 94664